=== PATIENT | male | born 1955 | race Caucasian/White ===

== ENCOUNTER 2016-07-11 08:09 | Day surgery (SDC) | payer OTHER ==
[2016-07-08 10:00] VITALS: Ht 162.6 cm; Wt 70.0 kg
[~2016-07-11] VITALS: Ht 162.6 cm; Wt 70.0 kg
[2016-07-11] VITALS (11 sets, daily range): BP systolic 108–140; BP diastolic 68–82; PULSE 69–88; RESP 10–18
[~2016-07-11 08:09] MED LIST: ASPI-664 PO; BUPIVACAINE 0.25% (MPF) 30 ML INJ INJ ONE; CEFAZOLIN 1 GM/50 ML (PMX) 50 ML IVPB SCH; ERGO500037 PO; NIT4 SL; PROP10TA6 PO; SIMV10TA PO; SOD CHLORIDE 0.9% 1,000 ML IV SCH
[2016-07-11] MEDS ORDERED: METO50TA16 PO (09:30)
[2016-07-11 09:55] LABS: INR 0.9; PROTIME 12.1 Sec (12.2-14.2); PT RATIO 0.9
[2016-07-11 09:56] LABS: PARTIAL THROMBOPLASTIN TIME 28.4 Sec (25.0-35.0)
--- NOTE | 2016-07-11 09:57 | RADRPT ---
PROCEDURE: XR Chest. CLINICAL INDICATION: Preoperative chest TECHNIQUE: Chest AP portable. COMPARISON: 01/15/2016 FINDINGS: The mediastinal structures are unremarkable. The heart is normal in size and configuration. The pu lmonary vascularity is normal. The lung watkins are unremarkable. No consolidation is identified. The pleural spaces are unremarkable. The axial skeleton is unremarkable. IMPRESSION: No active intrathoracic disease. RPTAT: [facility] .Sudhakar Bryan MD, MD Date Time Electronically viewed and signed by .Sudhakar Bryan MD, MD on 07/11/2016 09:56 .B/
[2016-07-11 09:58] LABS: CREATININE 0.74 mg/dl (0.61-1.24)
[2016-07-11 09:59] LABS: CALCIUM 9.2 mg/dl (8.4-10.2)
[2016-07-11 10:04] LABS: BASOPHILS % 0.4 % (0.0-2.0); EOSINOPHILS # 0.1 10^3/ul (0.0-0.5); EOSINOPHILS % 1.5 % (0.0-7.0); HEMATOCRIT 41.4 % (42.0-52.0); HEMOGLOBIN 13.7 g/dl (14.0-18.0); LYMPHOCYTES # 1.6 10^3/ul (0.8-2.9); LYMPHOCYTES % 23.8 % (15.0-51.0); MEAN CORPUSCULAR HEMOGLOBIN 28.6 pg (29.0-33.0); MEAN CORPUSCULAR HGB CONC 33.2 g/dl (32.0-37.0); MEAN CORPUSCULAR VOLUME 86.3 fl (82.0-101.0); MEAN PLATELET VOLUME 8.5 fl (7.4-10.4); MONOCYTE # 0.4 10^3/ul (0.3-0.9); MONOCYTES % 6.6 % (0.0-11.0); NEUTROPHIL # 4.5 10^3/ul (1.6-7.5); NEUTROPHILS % 67.7 % (39.0-77.0); PLATELET COUNT 238 10^3/UL (140-440); UNCORRECTED WBC 6.6 10^3/ul (4.8-10.8); WHITE BLOOD COUNT 6.6 10^3/ul (4.8-10.8)
[2016-07-11 10:20] LABS: CONDITION 1
[2016-07-11] MEDS ORDERED: BUPIVACAINE 0.25% (MPF) 30 ML INJ ONE (11:52)
[2016-07-11] MEDS ORDERED: BUPIVACAINE 0.25%/EPI (SDV) 30 ML INJ ONE (11:52)
[2016-07-11] MEDS ORDERED: LIDOCAINE 2% (SDV) 5 ML INJ ONE (12:10)
[2016-07-11] MEDS ORDERED: PROPOFOL 20 ML ONE (12:10)
[2016-07-11] MEDS ORDERED: MEPERIDINE 100 MG INJ ONE (12:10)
[2016-07-11] MEDS ORDERED: CEFAZOLIN 1 GM INJ ONE (12:13)
[2016-07-11] MEDS ORDERED: POLYMYXIN/BACITRACIN 1L IRRIG IRR ONE (12:50)
[2016-07-11] MEDS ORDERED: EPHEDrine SULFATE 50 MG/5 ML SYG ONE (12:51)
[2016-07-11] MEDS ORDERED: ATROPINE 1 MG/10 ML SYRINGE ONE (12:51)
[2016-07-11] MEDS ORDERED: HYDROCODONE/APAP (5/325) TAB PO ONE (13:30)
[2016-07-11] MEDS ORDERED: HYDROmorphONE (0.2 MG/ML) 10ML SYG IV ONE (13:46)
[2016-07-11] MEDS ORDERED: ONDANSETRON 4 MG INJ ONE (13:47)
[2016-07-11] MEDS: HYDROmorphONE (0.2 MG/ML) 10ML SYG IV PRN ×2 (13:50→14:10)
[2016-07-11] MEDS ORDERED: FENTAnyl 50 MCG/ML VIAL IV PRN ×2 (14:00)
[2016-07-11] MEDS ORDERED: HYDROmorphONE (0.2 MG/ML) 10ML SYG IV PRN (14:00)
[2016-07-11] MEDS ORDERED: morphine (1 MG/ML) 10ML SYRINGE IV PRN ×2 (14:00)
[2016-07-11] MEDS ORDERED: EPHEDrine SULFATE 50 MG/5 ML SYG IV PRN (14:00)
[2016-07-11] MEDS ORDERED: MIDAZOLAM 1 MG/ML 2 ML INJ IV PRN (14:00)
[2016-07-11] MEDS ORDERED: MEPERIDINE 25 MG INJ IV PRN (14:00)
[2016-07-11] MEDS ORDERED: LABETALOL HCL 20MG INJ IV PRN (14:00)
[2016-07-11] MEDS ORDERED: hydrALAzine 20 MG INJ IV PRN (14:00)
[2016-07-11] MEDS ORDERED: ONDANSETRON 4 MG INJ IV PRN (14:00)
[2016-07-11] MEDS ORDERED: METOCLOPRAMIDE 10 MG INJ IV PRN (14:00)
[2016-07-11] MEDS ORDERED: DIPHENHYDRAMINE 50 MG INJ IV PRN (14:00)
--- NOTE | 2016-07-11 18:11 | OPR ---
DATE OF OPERATION: 07/11/2016 INDICATION: This is a 61-year-old male with a left inguinal hernia. He requests surgical repair. Risks, alternatives, benefits, and personnel were discussed with the patient. Patient expressed und erstanding and consents to the operation. PREOPERATIVE DIAGNOSIS: Left inguinal hernia. POSTOPERATIVE DIAGNOSIS: Left inguinal hernia. OPERATION: Open left inguinal hernia repair with large size Ultrapro hernia system mesh. SURGEON: Delvin Iqbal MD SPECIMENS: None. COMPLICATIONS: None. ANESTHESIA: General. DESCRIPTION OF PROCEDURE: The patient was taken to the OR and prepped and draped in the usual ster ile fashion. Surgical timeout was performed. IV antibiotics were given. Left inguinal oblique inc ision is made with a 10 blade. Dissection cautery was carried down to the external oblique fascia w hich was opened with a 15 blade and extended inferomedially and lateral superiorly with Metzenbaum s cissors. Cord structure was encircled with a Mil drain. The hernia sac was identified, which w as in the indirect space and reduced. This area was bolstered with the disk portion of the UltraPro large system mesh. This disk portion is secured in place with a running 0 Prolene from the pubic t ubercle along the shelving edge of the inguinal ligament and superiorly to the internal oblique with interrupted 3-0 Vicryl. Onlay mesh was secured in a similar fashion with a running 0 Prolene from the pubic tubercle along the shelving edge of the inguinal ligament. Straps were created and reappr oximated to recreate the inguinal ring with interrupted 0 Prolene. Onlay mesh was secured to the in ternal oblique with interrupted 3-0 Vicryl. The external oblique fascia is closed with running 3-0 Vicryl. Yohana's was closed with interrupted 3-0 Vicryl. Skin was closed using interrupted 0 Vicry l and running 4-0 Monocryl. Local anesthesia was injected and dry dressings were applied. Dictated By: DELVIN GIBSON/SONY Conf#: [id number] DID#: [id number]
--- NOTE | 2016-07-12 14:33 | RADRPT ---
Vent Rate: 61 bpm RR Interval: 0 msec AL Interval: 150 msec QRS Duration: 90 msec QT Interval: 430 msec QTC Interval: 432 msec P-R-T [place]: 70 - 68 - 40 degrees Normal sinus rhythm Normal ECG Electronically Signed By: Zack Clement [id number]
== END 2016-07-11 16:20 | disposition home or self-care (01) ==
LOC: SDS 08:09
PROVIDERS: ATTEND Surgery
DX: K40.90 Unilateral inguinal hernia, without obstruction or gangrene, not specified as recurrent (principal)
CPT/HCPCS: 49505; 71010; 80048; 85025; 85610; 85730; 93005; C1781; J0461; J0690; J1170; J2175; J2405; Z7512; Z7610